=== PATIENT | male | born 1990 | race Caucasian/White ===

== ENCOUNTER 2018-10-12 10:14 | Emergency (ER) | payer SELFPAY ==
[~2018-10-12] VITALS: Ht 177.8 cm; Wt 74.8 kg
--- OUTSIDE RECORDS SUMMARY | 2018-10-12 10:17 | XMS REPORT | Clinical Summary ---
Author Author [facility] Organization [facility] Address Unknown Phone Unavailable Care Team Providers Care Bone Char Kiln Tender Name Role Phone Asked, No Pcp PCP Unavailable Allergies No Known Allergies Medications End Date Status Medication Sig Dispensed Refills Start Date 08/15/2018 acetaminophen-codeine Take 1-2 20 tablet 0 (TYLENOL WITH CODEINE #3) tablets by 8 300-30 mg per tablet mouth every 6 (six) hours as needed for moderate pain for up to 5 days. Active Problems Not on file Encounters Care Team Description Date Type Specialty Enrique Cheung MD Groin pain, right (Primary Dx) 08/10/2018 Emergency Emergency Medicine after 10/11/2017 Social History Date Tobacco Use Types Packs/Day Years Used Never Smoker Smokeless Tobacco: Never Used Alcohol Use Drinks/Week oz/Week Comments No Sex Assigned at Date Recorded Not on file Industry Job Start Date Occupation Not on file Not on file Not on file Travel End Travel History Travel Start No recent travel history available. Last Filed Vital Signs Time Taken Vital Sign Reading 08/10/2018 11:04 PM CDT Blood Pressure 132/72 08/10/2018 11:04 PM CDT Pulse 78 08/10/2018 5:39 PM CDT Temperature 37 C (98.6 F) 08/10/2018 11:04 PM CDT Respiratory Rate 16 08/10/2018 11:04 PM CDT Oxygen Saturation 100% - Inhaled Oxygen - Concentration 08/10/2018 5:38 PM CDT Weight 72.6 kg (160 lb) 08/10/2018 5:38 PM CDT Height 177.8 cm (5' 10") 08/10/2018 5:38 PM CDT Body Mass Index 22.96 Plan of Treatment Health Maintenance Due Date Last Done Comments MMR VACCINES (1 of - 1989 Standard series) VARICELLA VACCINES (1 of 2001 2 - 2-dose adolescent series) INFLUENZA VACCINE 06/25/2018 HEPATITIS B VACCINES Aged Out No longer eligible based on patient's age to complete this topic IPV VACCINES Aged Out No longer eligible based on patient's age to complete this topic MENINGOCOCCAL VACCINE Aged Out No longer eligible based on patient's age to complete this topic Procedures Comments Procedure Name Priority Date/Time Associated Diagnosis CT ANGIOGRAM ABDOMINAL STAT 08/10/2018 AORTA AND BILATERAL 9:42 PM CDT ILIOFEMORAL RUNOFF W WO CONTRAST ESTIMATED GFR STAT 08/10/2018 6:05 PM CDT LIPASE LEVEL STAT 08/10/2018 6:05 PM CDT COMPREHENSIVE METABOLIC STAT 08/10/2018 PANEL 6:05 PM CDT HC COMPLETE BLD COUNT STAT 08/10/2018 W/AUTO DIFF 6:05 PM CDT URINALYSIS SCREEN AND STAT 08/10/2018 MICROSCOPY, WITH REFLEX 5:41 PM CDT TO CULTURE URINE CULTURE STAT 08/10/2018 5:41 PM CDT after 10/11/2017 Results * CTA Abdominal Aorta And Bilateral Iliofemoral Runoff W Wo Contrast (08/10/2018 9:42 PM CDT) Narrative Performed At EXAMINATION:CT ANGIOGRAM ABDOMINAL AORTA AND BILATERAL ILIOFEMORAL RUNOFF W HM RADIANT WO CONTRAST CLINICAL HISTORY:hx of R fem artery repairnow with pain in area. need iliac runoffright lower extremity TECHNIQUE: Multiple CT angiographic images of the abdomen, pelvis, and bilateral lower extremities were obtained during intravenous administration of iodinated contrast. Multiple computerized reformatted images as well as 3-D volume rendered images were also obtained.Precontrast images of the abdomen were also obtained. CT imaging was performed with iterative reconstruction technique and/or automated exposure control to reduce radiation dose. COMPARISON:CT abdomen from February 19, 2016 IMPRESSION: CTA: 1.Abdominal Aorta: No aneurysm, dissection or significant stenosis.. 2.Mesenteric Vessels: Celiac axis, sma and chance are patent. 3.Iliac Arteries: The left common, internal and external iliac arteries are patent. There is focal irregularity with apparent hyperdensity at (series 2, image 92) the right mid common iliac artery. Unclear if this is postsurgical related to graft placement and is equivocal due to lack of noncontrast images. The previously noted stent within the right common iliac artery has been removed. There is mild tortuosity and ectasia of the proximal right external iliac artery. Right internal iliac artery is patent. 4.Additional Findings: none RIGHT LOWER EXTREMITY: 1.There are postsurgical changes related to prior femoral intervention. There is mild segmental narrowing of the proximal right common femoral artery. The superficial femoral and profunda femoris arteries are patent. The popliteal artery, proximal anterior tibial, peroneal and posterior tibial arteries are patent. In the lower leg, the anterior tibial artery is diminutive in caliber, and the peroneal and posterior tibial arteries provide dominant supply to the foot. . LEFT LOWER EXTREMITY: 1.Focal non-stenosing calcification is noted at the left common femoral artery just proximal to the bifurcation. The common femoral, superficial femoral, popliteal and calf vessels are patent without a critical stenosis. ABDOMEN: 1.Liver: unremarkable. 2.Gallbladder: unremarkable. 3.Spleen: not enlarged. 4.Pancreas:unremarkable. 5.Adrenal glands:unremarkable. 6.Kidneys: unremarkable. 7.Nodes: no enlarged lymphadenopathy. 8.Bowel: no bowel obstruction or inflammation. 9.Ascites: no ascites or fluid collections. 10.Additional Findings: 3 mm nodules are noted in the right and left lower lobes.. PELVIS: 1.No mass, fluid collection or significant adenopathy. 2.Additional Findings: none SUMMARY: 1.Postoperative changes related to right common iliac artery reconstruction. Focal high attenuation perigraft material at the mid right common iliac artery most likely represents expected post-operative change. Recommend correlation with operative report. 2.Mild segmental stenosis at the right common femoral artery.. 3.Right anterior tibial artery is diminutive in caliber and is not well visualized distal to the level of the calf. This could be secondary to slow flow, however the peroneal artery and posterior tibial arteries provide dominant supply to the right foot. 4. No other evidence of aneurysm or dissection. Additional findings as above. [facility]-[id number] Procedure Note [facility], Radiology Results Incoming - 08/10/2018 10:26 PM CDT EXAMINATION: CT ANGIOGRAM ABDOMINAL AORTA AND BILATERAL ILIOFEMORAL RUNOFF W WO CONTRAST CLINICAL HISTORY: hx of R fem artery repair now with pain in area. need iliac runoff right lower extremity TECHNIQUE: Multiple CT angiographic images of the abdomen, pelvis, and bilateral lower extremities were obtained during intravenous administration of iodinated contrast. Multiple computerized reformatted images as well as 3-D volume rendered images were also obtained.Precontrast images of the abdomen were also obtained. CT imaging was performed with iterative reconstruction technique and/or automated exposure control to reduce radiation dose. COMPARISON: CT abdomen from February 19, 2016 IMPRESSION: CTA: 1. Abdominal Aorta: No aneurysm, dissection or significant stenosis.. 2. Mesenteric Vessels: Celiac axis, sma and chance are patent. 3. Iliac Arteries: The left common, internal and external iliac arteries are patent. There is focal irregularity with apparent hyperdensity at (series 2, image 92) the right mid common iliac artery. Unclear if this is postsurgical related to graft placement and is equivocal due to lack of noncontrast images. The previously noted stent within the right common iliac artery has been removed. There is mild tortuosity and ectasia of the proximal right external iliac artery. Right internal iliac artery is patent. 4. Additional Findings: none RIGHT LOWER EXTREMITY: 1. There are postsurgical changes related to prior femoral intervention. There is mild segmental narrowing of the proximal right common femoral artery. The superficial femoral and profunda femoris arteries are patent. The popliteal artery, proximal anterior tibial, peroneal and posterior tibial arteries are patent. In the lower leg, the anterior tibial artery is diminutive in caliber, and the peroneal and posterior tibial arteries provide dominant supply to the foot. . LEFT LOWER EXTREMITY: 1. Focal non-stenosing calcification is noted at the left common femoral artery just proximal to the bifurcation. The common femoral, superficial femoral, popliteal and calf vessels are patent without a critical stenosis. ABDOMEN: 1. Liver: unremarkable. 2. Gallbladder: unremarkable. 3. Spleen: not enlarged. 4. Pancreas:unremarkable. 5. Adrenal glands:unremarkable. 6. Kidneys: unremarkable. 7. Nodes: no enlarged lymphadenopathy. 8. Bowel: no bowel obstruction or inflammation. 9. Ascites: no ascites or fluid collections. 10. Additional Findings: 3 mm nodules are noted in the right and left lower lobes.. PELVIS: 1. No mass, fluid collection or significant adenopathy. 2. Additional Findings: none SUMMARY: 1. Postoperative changes related to right common iliac artery reconstruction. Focal high attenuation perigraft material at the mid right common iliac artery most likely represents expected post-operative change. Recommend correlation with operative report. 2. Mild segmental stenosis at the right common femoral artery.. 3. Right anterior tibial artery is diminutive in caliber and is not well visualized distal to the level of the calf. This could be secondary to slow flow, however the peroneal artery and posterior tibial arteries provide dominant supply to the right foot. 4. No other evidence of aneurysm or dissection. Additional findings as above. [facility]-[id number] Performing Organization Address City/State/Zipcode Phone Number [facility] [address] [place] [address] * Estimated GFR (08/10/2018 6:05 PM CDT) Estimated GFR 61 mL/min/1.73 m2 [facility] DEPARTMENT OF Comment: PATHOLOGY AND Cater[employer]oryUnitsInte GENOMIC MEDICINE rpretation G1 >=90 Normal or high G2 60-89Mildly decreased [id number] Mildly to moderately decreased [id number] Moderately to severely decreased G4 15-29Severely decreased G5 <15Kidney failure The eGFR was calculated using the Chronic Kidney Disease Epidemiology Collaboration (CKD-EPI) equation. Interpretation is based on recommendations of the National Kidney Foundation-Kidney Disease Outcomes Quality Initiative (NKF-KDOQI) published in 2014. Specimen Plasma specimen Performing Organization Address City/State/Zipcode Phone Number [place] [phone] [place] [address] PATHOLOGY AND GENOMIC MEDICINE * CBC with platelet and differential (08/10/2018 6:05 PM CDT) WBC 6.3 4.2 - 11.0 k/uL [facility] DEPARTMENT OF PATHOLOGY AND GENOMIC MEDICINE RBC 4.21 4.04 - 5.86 m/uL [facility] DEPARTMENT OF PATHOLOGY AND GENOMIC MEDICINE HGB 12.5 (L) 13.0 - 17.3 g/dL [facility] DEPARTMENT OF PATHOLOGY AND GENOMIC MEDICINE HCT 39.2 34.0 - 45.0 % [facility] DEPARTMENT OF PATHOLOGY AND GENOMIC MEDICINE MCV 93.1 80.0 - 98.0 fL [facility] DEPARTMENT OF PATHOLOGY AND GENOMIC MEDICINE MCH 29.7 27.0 - 34.0 pg [facility] DEPARTMENT OF PATHOLOGY AND GENOMIC MEDICINE MCHC 31.9 31.5 - 36.5 g/dL [facility] DEPARTMENT OF PATHOLOGY AND GENOMIC MEDICINE RDW - SD 45.1 37.0 - 51.0 fL [facility] DEPARTMENT OF PATHOLOGY AND GENOMIC MEDICINE MPV 10.7 (H) 7.4 - 10.4 fL [facility] DEPARTMENT OF PATHOLOGY AND GENOMIC MEDICINE Platelet count 179 150 - 400 k/uL [facility] DEPARTMENT OF PATHOLOGY AND GENOMIC MEDICINE Nucleated RBC 0.00 /100 WBC [facility] DEPARTMENT OF PATHOLOGY AND GENOMIC MEDICINE Neutrophils 45.3 36.0 - 66.0 % [facility] DEPARTMENT OF PATHOLOGY AND GENOMIC MEDICINE Lymphocytes 42.0 24.0 - 44.0 % [facility] DEPARTMENT OF PATHOLOGY AND GENOMIC MEDICINE Monocytes 9.5 (H) 0.0 - 6.0 % [facility] DEPARTMENT OF PATHOLOGY AND GENOMIC MEDICINE Eosinophils 2.7 0.0 - 6.0 % [facility] DEPARTMENT PATHOLOGY AND GENOMIC MEDICINE Basophils 0.2 0.0 - 1.2 % [facility] PATHOLOGY AND GENOMIC MEDICINE Immature granulocytes 0.3 0.0 - 1.0 % [facility] DEPARTMENT OF PATHOLOGY AND GENOMIC MEDICINE Specimen Blood Performing Organization Address City/[facility] [place] [address] PATHOLOGY AND [facility] * Lipase level (08/10/2018 6:05 PM CDT) Lipase 37 13 - 60 U/L [facility] PATHOLOGY AND GENOMIC MEDICINE Specimen Plasma specimen Performing Organization Address City/[facility] [place] [address] PATHOLOGY [facility] * Comprehensive metabolic panel (08/10/2018 6:05 PM CDT) Sodium 142 135 - 150 mEq/L [facility] DEPARTMENT OF PATHOLOGY AND GENOMIC MEDICINE Potassium 4.1 3.5 - 5.0 mEq/L [facility] DEPARTMENT OF PATHOLOGY AND GENOMIC MEDICINE Chloride 104 98 - 112 mEq/L [facility] DEPARTMENT OF PATHOLOGY AND GENOMIC MEDICINE CO2 27 24 - 31 mmol/L [facility] DEPARTMENT OF PATHOLOGY AND GENOMIC MEDICINE Anion gap 11@ANIO 7 - 15 mEq/L [facility] DEPARTMENT OF PATHOLOGY AND GENOMIC MEDICINE BUN 14 7 - 18 mg/dL [facility] DEPARTMENT OF PATHOLOGY AND GENOMIC MEDICINE Creatinine 1.50 (H) 0.70 - 1.20 mg/dL [facility] DEPARTMENT OF PATHOLOGY AND GENOMIC MEDICINE Glucose 103 (H) 65 - 100 mg/dL [facility] DEPARTMENT OF PATHOLOGY AND GENOMIC MEDICINE Calcium 9.2 8.3 - 10.2 mg/dL [facility] DEPARTMENT OF PATHOLOGY AND GENOMIC MEDICINE Protein 7.0 6.3 - 8.3 g/dL [facility] DEPARTMENT OF PATHOLOGY AND GENOMIC MEDICINE Albumin 3.3 (L) 3.5 - 5.0 g/dL [facility] DEPARTMENT OF PATHOLOGY AND GENOMIC MEDICINE A/G ratio 0.9 0.7 - 3.8 [facility] DEPARTMENT OF PATHOLOGY AND GENOMIC MEDICINE Alkaline phosphatase 65 0 - 129 U/L [facility] DEPARTMENT OF PATHOLOGY AND GENOMIC MEDICINE AST 29 10 - 50 U/L [facility] DEPARTMENT OF PATHOLOGY AND GENOMIC MEDICINE ALT 24 5 - 50 U/L [facility] DEPARTMENT OF PATHOLOGY AND GENOMIC MEDICINE Total bilirubin <0.3 0.2 - 1.2 mg/dL [facility] DEPARTMENT OF PATHOLOGY AND GENOMIC MEDICINE Specimen Plasma specimen Performing Organization Address City/State/Zipcode Phone Number [place] [address] [place] [address] PATHOLOGY AND GENOMIC MEDICINE * Urinalysis screen and microscopy, with reflex to culture (08/10/2018 5:41 PM CDT) Specimen site Clean catch [facility] DEPARTMENT OF PATHOLOGY AND GENOMIC MEDICINE Color, UA Yellow [facility] DEPARTMENT OF PATHOLOGY AND GENOMIC MEDICINE Appearance, UA Slightly-Cloudy [facility] DEPARTMENT OF PATHOLOGY AND GENOMIC MEDICINE Specific gravity, UA 1.018 1.001 - 1.035 [facility] DEPARTMENT OF PATHOLOGY AND GENOMIC MEDICINE pH, UA 7.0 5.0 - 8.5 [facility] DEPARTMENT OF PATHOLOGY AND GENOMIC MEDICINE Protein, UA Negative Negative [facility] DEPARTMENT OF PATHOLOGY AND GENOMIC MEDICINE Glucose, UA Negative Negative [facility] DEPARTMENT OF PATHOLOGY AND GENOMIC MEDICINE Ketones, UA Negative Negative [facility] DEPARTMENT OF PATHOLOGY AND GENOMIC MEDICINE Bilirubin, UA Negative Negative [facility] DEPARTMENT OF PATHOLOGY AND GENOMIC MEDICINE Blood, UA Negative Negative [facility] DEPARTMENT OF PATHOLOGY AND GENOMIC MEDICINE Nitrite, UA Negative Negative [facility] DEPARTMENT OF PATHOLOGY AND GENOMIC MEDICINE Urobilinogen, UA 2.0 (A) <2.0 [facility] DEPARTMENT OF PATHOLOGY AND GENOMIC MEDICINE Leukocyte esterase, UA Negative Negative [facility] DEPARTMENT OF PATHOLOGY AND GENOMIC MEDICINE Epithelial cells, UA Few /HPF [facility] DEPARTMENT OF PATHOLOGY AND GENOMIC MEDICINE WBC, UA <1 0 - 1 /HPF [facility] DEPARTMENT OF PATHOLOGY AND GENOMIC MEDICINE RBC, UA <1 0 - 5 /HPF [facility] DEPARTMENT OF PATHOLOGY AND GENOMIC MEDICINE Bacteria, UA None seen None seen [facility] DEPARTMENT OF PATHOLOGY AND GENOMIC MEDICINE Yeast, UA None seen [facility] DEPARTMENT OF PATHOLOGY AND GENOMIC MEDICINE Yeast with pseudohyphae, None seen [facility] DEPARTMENT OF UA PATHOLOGY AND GENOMIC MEDICINE Specimen Urine Performing Organization Address City/State/Zipcode Phone Number [facility] [address] [place] [address] PATHOLOGY AND GENOMIC MEDICINE * Urine culture (08/10/2018 5:41 PM CDT) Urine culture SEE COMMENTComment: [facility] DEPARTMENT OF Bacteriuria screen negative. PATHOLOGY AND GENOMIC MEDICINE Performing Organization Address City/State/Zipcode Phone Number [place] [phone] [place] [address] PATHOLOGY AND GENOMIC MEDICINE after 10/11/2017 Advance Directives Patient has advance care planning documents on file. For more information, valeria osei contact: Mina Pratt [address] [place] [address]
== END 2018-10-12 11:20 | disposition home or self-care (01) ==
LOC: FSED 10:14
DX: M79.671 Pain in right foot (principal); Z98.890 Other specified postprocedural states; F17.210 Nicotine dependence, cigarettes, uncomplicated
CPT/HCPCS: 99283

== ENCOUNTER 2018-11-01 17:27 | Emergency (ER) | payer SELFPAY ==
[~2018-11-01] VITALS: Ht 177.8 cm; Wt 74.8 kg
--- OUTSIDE RECORDS SUMMARY | 2018-11-01 17:30 | XMS REPORT | Clinical Summary ---
Author Author [facility] Organization [facility] Address Unknown Phone Unavailable Care Team Providers Care Eyedotter Name Role Phone Asked, No Pcp PCP [...] (Primary Dx) 08/10/2018 Emergency Emergency Medicine after 10/31/2017 Social History Date Tobacco Use Types Packs/Day [...] Health Maintenance Due Date Last Done Comments INFLUENZA VACCINE 06/25/2018 HEPATITIS B VACCINES Aged [...] CULTURE STAT 08/10/2018 5:41 PM CDT after 10/31/2017 Results * CTA Abdominal Aorta And Bilateral [...] aneurysm or dissection. Additional findings as above. [id number] Procedure [place] [facility] Results Incoming - 08/10/2018 10:26 PM [...] aneurysm or dissection. Additional findings as above. [facility]-[id number] Performing Organization Address City/State/Zipcode Phone Number [facility] [address] [place] [address] * Estimated GFR (08/10/2018 6:05 PM CDT) Estimated GFR 61 mL/min/1.[address] [facility] DEPARTMENT OF Comment: PATHOLOGY AND CatergoryUnitsInte GENOMIC MEDICINE rpretation G1 >=90 Normal or high G2 60-89Mildly decreased Q4u15-23 Mildly to moderately decreased [id number] Moderately to severely decreased G4 15-29Severely decreased G5 <15Kidney failure The eGFR was calculated using the Chronic Kidney Disease Epidemiology Collaboration (CKD-EPI) equation. Interpretation is based on recommendations of the National Kidney Foundation-Kidney Disease Outcomes Quality Initiative (NKF-KDOQI) published in 2014. Specimen Plasma specimen Performing Organization Address City/State/Zipcode Phone Number [place] [address] [place] [address] PATHOLOGY AND GENOMIC MEDICINE * CBC with platelet and differential (08/10/2018 6:05 PM CDT) WBC 6.3 4.2 - 11.0 k/uL [facility] [place] [place] DEPARTMENT OF PATHOLOGY AND GENOMIC MEDICINE RBC 4.21 4.04 - 5.86 m/uL [facility] [place] DEPARTMENT OF PATHOLOGY AND GENOMIC MEDICINE HGB 12.5 (L) 13.0 - 17.3 g/dL [facility] [place] [place] DEPARTMENT OF PATHOLOGY AND GENOMIC MEDICINE HCT 39.2 34.0 - 45.0 % [facility] DEPARTMENT OF PATHOLOGY AND GENOMIC MEDICINE MCV 93.1 80.0 - 98.[address] [facility] DEPARTMENT OF PATHOLOGY AND GENOMIC MEDICINE MCH 29.7 27.0 - 34.[address] [facility] [place] DEPARTMENT OF PATHOLOGY AND GENOMIC MEDICINE MCHC 31.9 31.5 - 36.5 g/dL [facility] DEPARTMENT OF PATHOLOGY AND GENOMIC MEDICINE RDW - SD 45.1 37.0 - 51.[address] [facility] DEPARTMENT OF PATHOLOGY AND GENOMIC MEDICINE MPV 10.7 (H) 7.4 - 10.[address] [facility] DEPARTMENT OF PATHOLOGY AND GENOMIC MEDICINE Platelet count 179 150 - 400 k/uL [facility] [place] [place] DEPARTMENT OF PATHOLOGY AND GENOMIC MEDICINE Nucleated RBC 0.00 /[address] [facility] DEPARTMENT OF PATHOLOGY AND GENOMIC MEDICINE Neutrophils 45.3 36.0 - 66.0 % [facility] DEPARTMENT OF PATHOLOGY AND GENOMIC MEDICINE Lymphocytes 42.0 24.0 - 44.0 % [facility] DEPARTMENT OF PATHOLOGY AND GENOMIC MEDICINE Monocytes 9.5 (H) 0.0 - 6.0 % [facility] [place] DEPARTMENT OF PATHOLOGY AND GENOMIC MEDICINE Eosinophils 2.7 0.0 - 6.0 % [facility] DEPARTMENT OF PATHOLOGY AND GENOMIC MEDICINE Basophils 0.2 0.0 - 1.2 % [facility] DEPARTMENT OF PATHOLOGY AND GENOMIC MEDICINE Immature granulocytes 0.3 0.0 - 1.0 % [facility] DEPARTMENT OF PATHOLOGY AND GENOMIC MEDICINE Specimen Blood Performing Organization Address City/[facility]/[place] [address] PATHOLOGY AND GENOMIC MEDICINE * Lipase level (08/10/2018 6:05 PM CDT) Lipase 37 13 - 60 U/L [facility] DEPARTMENT OF PATHOLOGY AND GENOMIC MEDICINE Specimen Plasma specimen Performing Organization Address City/[facility]/[place] [address] PATHOLOGY AND GENOMIC MEDICINE * Comprehensive metabolic panel (08/10/2018 6:05 PM CDT) Sodium 142 135 - 150 mEq/L [facility] DEPARTMENT OF PATHOLOGY AND GENOMIC MEDICINE Potassium 4.1 3.5 - 5.0 mEq/L [facility] DEPARTMENT OF PATHOLOGY AND GENOMIC MEDICINE Chloride 104 98 - 112 mEq/L [facility] DEPARTMENT OF PATHOLOGY AND GENOMIC MEDICINE CO2 27 24 - 31 mmol/L [facility] DEPARTMENT OF PATHOLOGY AND GENOMIC MEDICINE Anion gap 11@ANIO 7 - 15 mEq/L [facility] DEPARTMENT OF PATHOLOGY AND GENOMIC MEDICINE BUN 14 7 - 18 mg/dL [facility] DEPARTMENT OF PATHOLOGY AND GENOMIC MEDICINE Creatinine 1.50 (H) 0.70 - 1.20 mg/dL [facility] DEPARTMENT OF PATHOLOGY AND GENOMIC MEDICINE Glucose 103 (H) 65 - 100 mg/dL [facility] DEPARTMENT OF PATHOLOGY AND GENOMIC MEDICINE Calcium 9.2 8.3 - 10.2 mg/dL [facility] DEPARTMENT OF PATHOLOGY AND GENOMIC MEDICINE Protein 7.0 6.3 - 8.3 g/dL [facility] DEPARTMENT OF PATHOLOGY AND GENOMIC MEDICINE Albumin 3.3 (L) 3.5 - 5.0 g/dL [facility] DEPARTMENT OF PATHOLOGY AND GENOMIC MEDICINE A/G ratio 0.9 0.7 - 3.8 [facility] DEPARTMENT OF PATHOLOGY AND GENOMIC MEDICINE Alkaline phosphatase 65 0 - 129 U/L [facility] DEPARTMENT OF PATHOLOGY AND GENOMIC MEDICINE AST 29 10 - 50 U/L [facility] DEPARTMENT OF PATHOLOGY AND GENOMIC MEDICINE ALT 24 5 - 50 U/L [facility] DEPARTMENT OF PATHOLOGY AND GENOMIC MEDICINE Total bilirubin <0.3 0.2 - 1.2 mg/dL [facility] DEPARTMENT OF PATHOLOGY AND GENOMIC MEDICINE Specimen Plasma specimen Performing Organization Address City/[facility] Phone Number [place] [address] [place] [address] PATHOLOGY AND GENOMIC MEDICINE * Urinalysis screen and microscopy, with reflex to culture (08/10/2018 5:41 PM CDT) Specimen site Clean catch [facility] DEPARTMENT OF PATHOLOGY AND GENOMIC MEDICINE Color, UA Yellow [facility] DEPARTMENT OF PATHOLOGY AND GENOMIC MEDICINE Appearance, UA Slightly-Cloudy [facility] DEPARTMENT OF PATHOLOGY AND GENOMIC MEDICINE Specific gravity, UA 1.018 1.001 - 1.035 [facility] DEPARTMENT OF PATHOLOGY AND GENOMIC MEDICINE pH, UA 7.0 5.0 - 8.5 [facility] DEPARTMENT OF PATHOLOGY AND GENOMIC MEDICINE Protein, UA Negative Negative [facility] DEPARTMENT OF PATHOLOGY AND GENOMIC MEDICINE Glucose, UA Negative Negative [facility] DEPARTMENT OF PATHOLOGY AND GENOMIC MEDICINE Ketones, UA Negative Negative [facility] DEPARTMENT OF PATHOLOGY AND GENOMIC MEDICINE Bilirubin, UA Negative Negative [facility] DEPARTMENT OF PATHOLOGY AND GENOMIC MEDICINE Blood, UA Negative Negative [facility] DEPARTMENT OF PATHOLOGY AND GENOMIC MEDICINE Nitrite, UA Negative Negative [facility] DEPARTMENT OF PATHOLOGY AND GENOMIC MEDICINE Urobilinogen, UA 2.0 (A) <2.0 [facility] DEPARTMENT OF PATHOLOGY AND GENOMIC MEDICINE Leukocyte esterase, UA Negative Negative [facility] DEPARTMENT OF PATHOLOGY AND GENOMIC MEDICINE Epithelial cells, UA Few /HPF [facility] DEPARTMENT OF PATHOLOGY AND GENOMIC MEDICINE WBC, UA <1 0 - 1 /HPF [facility] DEPARTMENT OF PATHOLOGY AND GENOMIC MEDICINE RBC, UA <1 0 - 5 /HPF [facility] DEPARTMENT OF PATHOLOGY AND GENOMIC MEDICINE Bacteria, UA None seen None seen [facility] DEPARTMENT OF PATHOLOGY AND GENOMIC MEDICINE Yeast, UA None seen [facility] DEPARTMENT OF PATHOLOGY AND GENOMIC MEDICINE Yeast with pseudohyphae, None seen [facility] DEPARTMENT OF PATHOLOGY AND GENOMIC MEDICINE Specimen Urine Performing Organization Address City/[facility] Phone Number [facility] DEPARTMENT OF [address] [place] [address] PATHOLOGY AND GENOMIC MEDICINE * Urine culture (08/10/2018 5:41 PM CDT) Urine culture SEE COMMENTComment: [facility] DEPARTMENT OF Bacteriuria screen negative. PATHOLOGY AND GENOMIC MEDICINE Performing Organization Address City/[facility]/Zipcode Phone Number [facility] DEPARTMENT OF [address] [place] [address] PATHOLOGY AND GENOMIC MEDICINE after 10/31/2017 Advance Directives Patient has advance care planning documents on file. For more information, valeria osei contact: Mina Pratt [address] [place] [address]
[2018-11-01] MEDS ORDERED: ONDANSETRON HCL 4 MG ORAL DISINTEGRATING TAB PO ONE (17:45)
[2018-11-01] MEDS ORDERED: MAGNESIUM/ALUMINUM/SIMETHICONE 30 ML UDC PO ONE (18:00)
[2018-11-01] MEDS ORDERED: LIDOCAINE VISC 2% SOLN 15 ML UDC PO ONE (18:00)
[2018-11-01] MEDS ORDERED: MORPHINE SULFATE 2 MG/ML SYR IV STA ×2 (18:29→18:30)
[2018-11-01] MEDS ORDERED: SODIUM CHLORIDE 0.9% 1000ML 1,000 ML IV SCH (18:30)
[2018-11-01] MEDS ORDERED: FAMOTIDINE 20 MG/2 ML VIAL IV STA (18:30)
[2018-11-01] MEDS ORDERED: METOCLOPRAMIDE HCL 10 MG/2ML VIAL IV ONE (18:30)
[2018-11-01] MEDS ORDERED: DONNATAL/LIDOCAINE/MAALOX 30 ML SUSP PO ONE (18:30)
[2018-11-01] MEDS ORDERED: PANTOPRAZOLE INJ 40 MG in SODIUM CHLORIDE 0.9% 50ML 50 ML IV SCH (18:30)
[2018-11-01] MEDS ORDERED: MORPHINE SULFATE INJ 4 MG/ML INJ IV STA (18:38)
[2018-11-01] MEDS ORDERED: PANTOPRAZOL 40MG/SOD CHL 0.9% 50 ML IV SCH (18:45)
[2018-11-01 19:38] VITALS: BP 5/10
--- NOTE | 2018-11-01 19:48 | Diagnostic Imaging Report ---
EXAM: CT ABD/PEL WITH CONTRAST-HOPD DATE: 11/01/2018 12:00 AM INDICATION: Kathy-Danlos syndrome with acute pain, prior repair of iliac rupture COMPARISON: None TECHNIQUE: The abdomen and pelvis were scanned using a multidetector helical scanner. Coronal and sagittal reformations were obtained. CT low dose techniques were utilized, as applicable. IV Contrast: 100 ml Isovue 300/370 FINDINGS: LOWER THORAX: No consolidations LIVER/BILIARY: No masses. No ductal dilatation. GALLBLADDER: Unremarkable SPLEEN: Unremarkable PANCREAS: Unremarkable ADRENALS: No nodules KIDNEYS: No suspicious renal masses. No hydronephrosis. GI TRACT: Several mild focally dilated fluid-filled small bowel loops in the midabdomen with hairpin turn and transition point on coronal image 29. No wall thickening. Appendix is not clearly visualized. VESSELS: There is mild tortuosity and focal irregularity of the right common iliac artery into the bifurcation of the external and internal iliac arteries. Focal undulation and likely small dissection flap of the right internal iliac artery origin (image 60). This is presumably related to prior repair. No evidence of rupture. PERITONEUM/RETROPERITONEUM: No free air or fluid LYMPH NODES: No lymphadenopathy REPRODUCTIVE ORGANS/BLADDER: Unremarkable SOFT TISSUES: Unremarkable BONES: No suspicious bone lesions. IMPRESSION: 1. Findings most compatible with early small bowel obstruction, likely related to adhesive disease. 2. Presumed postsurgical changes related to repair of the right common iliac artery into the bifurcation, as above. Recommend comparison with priors to document stability. Discussed with Dr. Lai at 740 PM on 11/01/18 Signed by: Dr Mireille Castle MD on 11/01/2018 7:45 PM
[2018-11-01] MEDS ORDERED: BENZOCAINE/TETRACAINE/BUTAMBEN AERO SPRAY 56 GM CAN TOP ONE (20:00)
== END 2018-11-01 23:10 | disposition other institution (70) ==
LOC: FSED 17:27
DX: R10.31 Right lower quadrant pain (principal); R10.13 Epigastric pain; R11.2 Nausea with vomiting, unspecified; K56.609 Unspecified intestinal obstruction, unspecified as to partial versus complete obstruction; K52.9 Noninfective gastroenteritis and colitis, unspecified; K29.00 Acute gastritis without bleeding
CPT/HCPCS: 74177; 80053; 85025; 99284; J2765; Q0162